=== PATIENT | male | born 1985 | race Caucasian/White ===

== ENCOUNTER 2016-06-25 10:50 | Emergency (ER) | payer OTHER ==
[~2016-06-25] VITALS: Ht 190.5 cm; Wt 139.1 kg
[~2016-06-25 10:50] MED LIST: BUPR8MIS SL
[2016-06-25 10:59] VITALS: TEMP 36.5; Ht 190.5 cm; Wt 139.1 kg
[2016-06-25 11:07] VITALS: O2SAT 97
--- NOTE | 2016-06-25 12:43 | EMERGENCY ROOM VISIT NOTE ---
History Report prepared by Sameera: Disha Mcmahon Under the Supervision of: Dr. Esteban Cummings M.D. First contact with patient: 12:10 Chief Complaint: FALL Stated Complaint: FALL, NECK PAIN History of Present Illness The patient is a 30 year old male who presents to the Emergency Room with complaints of an episode of a fall occurring 3 hours [employer]. 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 He landed on his left shoulder and hit his head. The patient reports LOC for about 1 minute. He is currently complaining of left shoulder pain, neck pain, headache , and blurred vision. Movement exacerbates his pain. He was feeling nauseous but received Zofran en route to the ED, which alleviated his nausea. The patient rates his current pain as a 7/10 in severity. He has not taken anything for pain. He is on Suboxone. The patient went to [facility]. He was placed in a cervical collar and was sent to the ED for further evaluation. He denies vomiting. 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 Review of Systems See HPI for pertinent positives & negatives. A total of 10 systems reviewed and were otherwise negative. Past Medical & Surgical Medical Problems: (1) ESOPHAGEAL REFLUX (2) FAM HX-CHR RESP COND NEC (3) FAMILY HISTORY OF OTHER CARDIOVASCULAR DISEASES (4) FAMILY HX-MALIGNANCY NOS (5) HYPERTENSION NOS (6) MIGRAINE UNSPECIFIED W/O INTRACT MGRN W/O STATUS MIGRAINOSUS (7) TOBACCO USE DISORDER Family History Cancer Heart disease Hypertension Lung disease Social History Smoking Status: Current Every Day Smoker Alcohol Use: none Drug Use: none Marital Status: in relationship Housing Status: unknown Occupation Status: employed Current/Historical Medications Scheduled Buprenorphine Hcl-Naloxone Hcl (Suboxone 8-2 Mg), 1 EA SL DAILY Allergies Coded Allergies: No Known Allergies (Verified , 06/25/16) Physical Exam Vital Signs Date Time Temp Pulse Resp B/P Pulse Ox O2 Delivery O2 Flow Rate FiO2 06/25/16 14:00 68 17 134/87 06/25/16 13:31 71 16 134/87 96 Room Air 06/25/16 13:00 73 18 120/77 98 Room Air 06/25/16 11:38 72 18 137/75 97 Room Air 06/25/16 11:07 97 Room Air 06/25/16 10:59 36.5 78 16 164/74 97 Room Air 06/25/16 10:59 80 Physical Exam GENERAL: Patient is a healthy-appearing well-nourished 30 year old male. HEAD: Normocephalic atraumatic EYES: Ocular movements intact pupils equal and react to light OROPHARYNX mucous membranes are moist no exudates present no erythema or edema present NECK: Cervical collar in place, no nuchal rigidity CHEST: Good equal expansion LUNGS: Clear and equal to auscultation CARDIAC: Normal S1 and S2 ABDOMEN: Soft nontender no guarding BACK: Tender to the midline of the spine at C4 asa well as T6 - T10. EXTREMITIES: No pain upon palpation normal muscle strength in all groups no clubbing cyanosis or edema. Good ROM of left shoulder, neurovascularly intact at the left hand. Good ROM of the left elbow and left wrist, free from pain. NEURO: Patient is following commands is answering questions appropriately. Alert and oriented x3 Cranial Nerves 2-12 grossly intact Medical Decision & Procedures ER Provider Diagnostic Interpretation: Radiology results as stated below per my review and radiologist interpretation: CT OF THE HEAD WITHOUT CONTRAST CLINICAL HISTORY: Fall with loss of consciousness. COMPARISON STUDY: Head CT January 08, 2012 CT DOSE: 3095.28 mGy.cm TECHNIQUE: Helical axial images of the head were obtained without IV contrast. Automated exposure control was utilized for the study. FINDINGS: No acute intracranial hemorrhage, midline shift or mass effect is present. Ventricular system is normal. The basilar cisterns are patent. There are no extra-axial collections. Mckenzie-white differentiation is maintained. There is no calvarial fracture. There is mild mucosal thickening of the sinuses. IMPRESSION: 1. No acute intracranial findings. 2. No calvarial fracture. Electronically signed by: Eliecer Richards M.D. 06/25/2016 1:40 PM Dictated Date/Time: 06/25/2016 1:[address] OF THE CERVICAL SPINE CLINICAL HISTORY: Neck pain status post trauma COMPARISON STUDY: No previous studies for comparison. CT DOSE: TECHNIQUE: CT scan of the cervical spine was performed from the skull base to the thoracic inlet. Images are reviewed in the axial, sagittal, and coronal planes. IV contrast was not administered for this examination. FINDINGS: The visualized portions of the lung apices reveal no evidence of pneumothorax. The prevertebral soft tissues are normal. No fractures or subluxations are visualized. There is slight straightening of normal cervical lordosis. There are degenerative changes most pronounced the C5-6 level. IMPRESSION: No evidence of acute fracture or traumatic subluxation. Electronically signed by: Maikol Escobedo M.D. 06/25/2016 1:41 PM Dictated Date/Time: 06/25/2016 1:[address] THORACIC SPINE WITHOUT CT DOSE: CLINICAL HISTORY: Thoracic spine pain status post trauma TECHNIQUE: Helical images were acquired in transverse plane. Reformatted images were acquired. COMPARISON STUDY: None. FINDINGS: No paraspinal hematomas are visualized. No pleural effusions are visualized. No pneumothorax is visualized. Multilevel endplate cavities are felt to be developmental. No acute fractures are visualized. There are no subluxations. IMPRESSION: No evidence of acute fracture or traumatic subluxation. Electronically signed by: Maikol Escobedo M.D. 06/25/2016 1:45 PM Dictated Date/Time: 06/25/2016 1:42 PM LEFT SHOULDER MIN 2 VIEWS ROUTINE CLINICAL HISTORY: Left shoulder pain following fall. COMPARISON: None FINDINGS: Alignment of the left shoulder is anatomic. There is no acute fracture. IMPRESSION: No acute fracture or dislocation of the left shoulder. Electronically signed by: Eliecer Richards M.D. 06/25/2016 2:34 PM Dictated Date/Time: 06/25/2016 2:[address] SCAN OF THE LUMBAR SPINE WITHOUT IV CONTRAST CLINICAL HISTORY: Fall with back pain. COMPARISON STUDY: CT scan of lumbar spine dated 01/08/2012. TECHNIQUE: CT scan of the lumbar spine is performed from the lower thoracic spine to the sacrum. Images are reviewed in the axial, sagittal, and coronal planes. IV contrast was not administered for this examination. FINDINGS: The skeletal structures are well mineralized. There is no evidence of fracture or malalignment. Vertebral body height and alignment are maintained throughout the lumbar spine. Minimal anterior wedging of T12 is unchanged dating back to 2011. The transverse and spinous processes are intact. No lytic or blastic bony lesions are seen. There is no spondylolysis. The intervertebral disc spaces are preserved. There is no evidence of large disc herniation. The central canal appears clear. The visualized sacrum and bony pelvis appear intact. The paraspinous soft tissues are within normal limits. IMPRESSION: Unremarkable assessment of the lumbar spine. Electronically signed by: Grey Estrella M.D. 06/25/2016 1:53 PM Dictated Date/Time: 06/25/2016 1:50 PM ED Course 1210: Past medical records reviewed. The patient was evaluated in room C11B. A complete history and physical examination was performed. 1337: I reassessed the patient and updated him at this time. 1458: I reassessed the patient at this time. He is feeling better and resting comfortably. I discussed the results and treatment plan with the patient. I answered all pertaining questions that he had. He expressed understanding and verbalized agreement. The patient will be discharged home. Medical Decision Differential diagnosis: Etiologies such as fracture, dislocation, intra-abdominal, pneumothorax, intrathoracic , intracranial, neurologic, as well as other traumatic pathologies were entertained. This is a 30-year-old male who presents emergency department complaining of a fall at his job. Patient is complaining of possibly losing consciousness as well as neck pain. He is placed in a cervical collar med express sent to the emergency department. CAT scan of his head does not show any acute process and a CAT scan of the spine does not show any acute process. After removal of the cervical collar the patient was continuing to complain of neck pain so he was placed in a [place] J collar. X-rays of his left shoulder do not show any evidence of chest fracture dislocation or subluxation. The patient was offered pain medication in the emergency department however he is on Suboxone and noted that he cannot take anything for pain. For this reason I stressed the need for follow-up with orthopedics. Impression Primary Impression: Shoulder pain, left Additional Impressions: Neck pain, acute Fall Scribe Attestation The scribe's documentation has been prepared under my direction and personally reviewed by me in its entirety. I confirm that the note above accurately reflects all work, treatment, procedures, and medical decision making performed by me. Departure Information Dispostion Home / Self-Care Referrals Ozzie Maldonado M.D.([facility]) (PCP) Forms HOME CARE DOCUMENTATION FORM, IMPORTANT VISIT INFORMATION, School Instructions, Work Instructions Patient Instructions ED Mechanical Fall, ED Shoulder Pain [facility], ED Sprain Strain Neck, Falls Risks Prevent, My [facility] Additional Instructions You have been examined and treated today on an emergency basis only. This is not a substitute for, or an effort to provide, complete comprehensive medical care. It is impossible to recognize and treat all injuries or illnesses in a single emergency department visit. It is therefore important that you follow up closely with Dr Maldonado. Call as soon as possible for an appointment. Thank you for your time and consideration. I look forward to speaking with you again soon. Please don't hesitate to call us if you have any questions. Problem Qualifiers Primary Impression: Shoulder pain, left Chronicity: acute Qualified Codes: M25.512 - Pain in left shoulder Additional Impressions: Fall Encounter type: initial encounter Qualified Codes: W19.XXXA - Unspecified fall, initial encounter
--- NOTE | 2016-06-25 13:42 | DIAGNOSTIC IMAGING REPORT ---
CT OF THE HEAD WITHOUT CONTRAST CLINICAL HISTORY: Fall with loss of consciousness. COMPARISON STUDY: Head CT January 08, 2012 CT DOSE: 3095.28 mGy.cm TECHNIQUE: Helical axial images of the head were obtained without IV contrast. Automated exposure control was utilized for the study. FINDINGS: No acute intracranial hemorrhage, midline shift or mass effect is present. Ventricular system is normal. The basilar cisterns are patent. There are no extra-axial collections. Mckenzie-white differentiation is maintained. There is no calvarial fracture. There is mild mucosal thickening of the sinuses. IMPRESSION: 1. No acute intracranial findings. 2. No calvarial fracture. Electronically signed by: Eliecer Richards M.D. 06/25/2016 1:40 PM Dictated Date/Time: 06/25/2016 1:37 PM
--- NOTE | 2016-06-25 13:43 | DIAGNOSTIC IMAGING REPORT ---
CT OF THE CERVICAL SPINE CLINICAL HISTORY: Neck pain status post trauma COMPARISON STUDY: No previous studies for comparison. CT DOSE: TECHNIQUE: CT scan of the cervical spine was performed from the skull base to the thoracic inlet. Images are reviewed in the axial, sagittal, and coronal planes. IV contrast was not administered for this examination. FINDINGS: The visualized portions of the lung apices reveal no evidence of pneumothorax. The prevertebral soft tissues are normal. No fractures or subluxations are visualized. There is slight straightening of normal cervical lordosis. There are degenerative changes most pronounced the C5-6 level. IMPRESSION: No evidence of acute fracture or traumatic subluxation. Electronically signed by: Maikol Escobedo M.D. 06/25/2016 1:41 PM Dictated Date/Time: 06/25/2016 1:39 PM
--- NOTE | 2016-06-25 13:47 | DIAGNOSTIC IMAGING REPORT ---
CT THORACIC SPINE WITHOUT CT DOSE: CLINICAL HISTORY: Thoracic spine pain status post trauma TECHNIQUE: Helical images were acquired in transverse plane. Reformatted images were acquired. COMPARISON STUDY: None. FINDINGS: No paraspinal hematomas are visualized. No pleural effusions are visualized. No pneumothorax is visualized. Multilevel endplate cavities are felt to be developmental. No acute fractures are visualized. There are no subluxations. IMPRESSION: No evidence of acute fracture or traumatic subluxation. Electronically signed by: Maikol Escobedo M.D. 06/25/2016 1:45 PM Dictated Date/Time: 06/25/2016 1:42 PM
--- NOTE | 2016-06-25 13:55 | DIAGNOSTIC IMAGING REPORT ---
CT SCAN OF THE LUMBAR SPINE WITHOUT IV CONTRAST CLINICAL HISTORY: Fall with back pain. COMPARISON STUDY: CT scan of lumbar spine dated 01/08/2012. TECHNIQUE: CT scan of the lumbar spine is performed from the lower thoracic spine to the sacrum. Images are reviewed in the axial, sagittal, and coronal planes. IV contrast was not administered for this examination. FINDINGS: The skeletal structures are well mineralized. There is no evidence of fracture or malalignment. Vertebral body height and alignment are maintained throughout the lumbar spine. Minimal anterior wedging of T12 is unchanged dating back to 2011. The transverse and spinous processes are intact. No lytic or blastic bony lesions are seen. There is no spondylolysis. The intervertebral disc spaces are preserved. There is no evidence of large disc herniation. The central canal appears clear. The visualized sacrum and bony pelvis appear intact. The paraspinous soft tissues are within normal limits. IMPRESSION: Unremarkable assessment of the lumbar spine. Electronically signed by: Grey Estrella M.D. 06/25/2016 1:53 PM Dictated Date/Time: 06/25/2016 1:50 PM
--- NOTE | 2016-06-25 14:36 | DIAGNOSTIC IMAGING REPORT ---
LEFT SHOULDER MIN 2 VIEWS ROUTINE CLINICAL HISTORY: Left shoulder pain following fall. COMPARISON: None FINDINGS: Alignment of the left shoulder is anatomic. There is no acute fracture. IMPRESSION: No acute fracture or dislocation of the left shoulder. Electronically signed by: Eliecer Richards M.D. 06/25/2016 2:34 PM Dictated Date/Time: 06/25/2016 2:32 PM
[2016-06-25 15:25] VITALS: BP 139/99; PULSE 70; O2SAT 98
== END 2016-06-25 15:26 | disposition home or self-care (01) ==
LOC: EDBD 10:50 → C.EDC 10:51
DX: M25.512 Pain in left shoulder (principal); M54.2 Cervicalgia; W00.0XXA Fall on same level due to ice and snow, initial encounter; Y99.0 Civilian activity done for income or pay; F17.200 Nicotine dependence, unspecified, uncomplicated; I10 Essential (primary) hypertension

== ENCOUNTER 2020-08-31 06:44 | Inpatient (IN) ==
[2020-08-31] MEDS ORDERED: ONDANSETRON INJ 2 MG/ML 2 ML VIAL IV STA (07:05)
[2020-08-31] MEDS ORDERED: SODIUM CHLORIDE 0.9% 1000ML 500 ML IV ONE (07:05)
[2020-08-31] MEDS ORDERED: AMPICILLIN/SULBACTAM SOD 3,000 MG in 0.9 % SODIUM CHLORIDE 100 ML IV STA (07:05)
[2020-08-31] MEDS ORDERED: dexAMETHasone**PF** 10 MG/ML VIAL IV ONE (07:13)
--- NOTE | 2020-08-31 07:16 | Emergency Department Note ---
ED Visit Note I contributed to the care of this patient under the supervision of Dr. Dan. . Resident Activity Tracking Resident Involvement: Resident Care Provided Care Provided: Adult ED
--- NOTE | 2020-08-31 07:39 | Emergency Department Note ---
History of Present Illness General Chief complaint: Sore Throat Stated complaint: SEVERE SORE THROAT Time Seen by Provider: 08/31/20 06:51 Source: patient Mode of arrival: ambulatory Limitations: no limitations History of Present Illness Provider complaint: Sore throat Maximum Pain Intensity: 7 This is a 35-year-old male who presents to the ED with a chief complaint of a sore throat that has been ongoing for about a week. He states that over the past 2 to 3 days he began having some difficulty with swallowing, increased discomfort and a little difficulty breathing. He denies any fevers or chills. No nausea or vomiting. No additional complaints. Home Medications Medication Instructions Recorded Confirmed Type buprenorphine HCl 8 mg SUBLINGUAL TID 08/31/20 08/31/20 History Allergies Allergy/AdvReac Type Severity Reaction Status Date / Time No Known Allergies Allergy Verified 08/31/20 07:03 Past Med/Surg History Medical History (Updated 08/31/20 @ 10:10 by Esteban Dan DO) Anxiety Depression GERD (gastroesophageal reflux disease) NO MEDS CURRENTLY Opioid dependence Surgical History History of open reduction and internal fixation (ORIF) procedure LEFT ARM AND RIGHT HAND History of tooth extraction Family History Other No pertinent family history Social History Smoking Status: Current every day smoker Tobacco Type: Cigarettes Cigarettes Per Day: 20 CIGARETTES DAILY X 12 YEARS; Second Hand Exposure: Yes; Hx Alcohol Use: No Hx Substance Use: Yes (H/O OPIOD ADDICTION) Last Used Substance Other:: 06/04/18 Preferred Language: Zimbabwean Communication Ability: Effective Head Waitress Required: No Beliefs That Will Affect Care: None Current Living Situation: Family Feels Safe at Home: Yes Review of Systems A total of 10 systems reviewed and were otherwise negative Physical Exam Vital Signs Vital Signs - 24 hr 08/31/20 06:48 08/31/20 07:39 08/31/20 09:39 Temperature 36.3 C L Temperature Source Temporal Artery Scan Pulse Rate 97 H Pulse Rhythm Regular Respiratory Rate 16 18 16 Respiratory Effort / Characteristics Non-Labored Non-Labored Respiratory Depth Normal Normal Blood Pressure 171/102 H Blood Pressure [Left Arm] 152/98 H 131/91 Blood Pressure Mean 125 Blood Pressure Mean [Left Arm] 116 104 Blood Pressure Position [Left Arm] Sitting Sitting Pulse Oximetry 96 94 95 Oxygen Delivery Method Room Air Room Air Room Air Sepsis Recent Fever Within 48 Hours No Sepsis New/Unexplained Change in Mental Status No Sepsis Action Taken by Nursing No Action Required CONSTITUTIONAL/VITAL SIGNS: Reviewed / noted above. GENERAL: Non-toxic in appearance. INTEGUMENTARY: Warm, dry, and [place]. HEAD: Normocephalic. EYES: without scleral icterus or trauma. ENT/OROPHARYNX: clear and moist. The patient has moderate right soft palate and peritonsillar edema and fullness that slightly narrows the airway and deviates slightly to the left. Muffled voice. Minimal trismus. LYMPHADENOPATHY/NECK: Is supple without lymphadenopathy or meningismus. RESPIRATORY: Lungs clear and equal. CARDIOVASCULAR: Regular rate and rhythm. GI/ABDOMEN: Soft and nontender. No organomegaly or pulsatile mass. No rebound or guarding. Normal bowel sounds. EXTREMITIES: Warm and well perfused. BACK: No CVA tenderness. NEUROLOGICAL: Intact without focal deficits. PSYCHIATRIC: normal affect. MUSCULOSKELETAL: Normally developed with good muscle tone. TRIAGE NURSING DOCUMENTATION REVIEWED. Course Administered Medications Discontinued Medications Dexamethasone Sodium Phosphate (DexamethasonePf 10 Mg/Ml Vial) 10 mg IV NOW ONE Stop: 08/31/20 07:14 Last Admin: 08/31/20 07:59 Dose: 10 mg Documented by: [id number] Ampicillin Sodium/Sulbactam Sodium 3,000 mg/ Sodium Chloride 108 mls @ 200 mls/hr IV NOW STA; Protocol Stop: 08/31/20 07:37 Last Infusion: 08/31/20 08:48 Dose: 0 mls/hr Documented by: [id number] Admin: 08/31/20 07:59 Dose: 200 mls/hr Documented by: [id number] Sodium Chloride (Nss 1000ml) 500 mls @ 999 mls/hr IV .Q31M ONE Stop: 08/31/20 07:35 Last Infusion: 08/31/20 08:25 Dose: 0 mls/hr Documented by: [id number] Admin: 08/31/20 07:53 Dose: 999 mls/hr Documented by: [id number] Ioversol (Optiray 320 125ml) 120 ml IV ONCE ONE Stop: 08/31/20 08:41 Last Admin: 08/31/20 08:40 Dose: 120 ml Documented by: [id number] Ondansetron HCl (Ondansetron Inj 2 Mg/Ml 2 Ml Vial) 4 mg IV NOW STA Stop: 08/31/20 07:06 Last Admin: 08/31/20 07:59 Dose: 4 mg Documented by: [id number] Medical Decision Making Differential Diagnosis Differential includes peritonsillar abscess, retropharyngeal abscess, laryngitis, bacterial versus viral infection, tonsillitis, airway obstruction. Medical Records Attestation: I reviewed the patient's medical records. Home Medications Current Medication List: was personally reviewed by me Laboratory Data Attestation: I reviewed the patient's lab results. Result diagrams: 08/31/20 07:26 08/31/20 07:26 Lab Results 08/31/20 08/31/20 08/31/20 Range/Units 07:26 07:26 09:43 WBC 17.70 H (4.8-10.8) K/uL RBC 5.05 (4.7-6.1) M/uL Hgb 15.2 (14.0-18.0) g/dL Hct 44.6 (42-52) % MCV 88.3 (80-100) fL MCH 30.1 (25-34) pg MCHC 34.1 (32-36) g/dL RDW Std Deviation 41.6 (36.4-46.3) fL RDW Coeff of Les 13.0 (11.5-14.5) % Plt Count 305 (130-400) K/uL MPV 11.2 H (7.4-10.4) fL Immature Gran % (Auto) 0.3 % Neut % (Auto) 66.3 % Lymph % (Auto) 18.4 % Todd % (Auto) 13.7 % Eos % (Auto) 1.0 % Baso % (Auto) 0.3 % Neut # (Auto) 11.72 H (1.4-6.5) K/uL Lymph # (Auto) 3.26 (1.2-3.4) K/uL Todd # (Auto) 2.43 H (0.11-0.59) K/uL Eos # (Auto) 0.18 (0-0.5) K/uL Baso # (Auto) 0.05 (0-0.2) K/uL Immature Gran # (Auto) 0.06 H (0.00-0.02) K/uL Sodium 138 (136-145) mmol/L Potassium 3.7 (3.5-5.1) mmol/L Chloride 107 (98-107) mmol/L Carbon Dioxide 26 (21-32) mmol/L Anion Gap 5.0 (3-11) BUN 13 (7-18) mg/dl Creatinine 0.89 (0.6-1.4) mg/dl Est Cr Clr Drug Dosing 173.0 ml/min Est GFR ( Amer) 129.3 Est GFR (Non-Af Amer) 111.6 BUN/Creatinine Ratio 14.6 (10-20) Glucose 102 H (70-99) mg/dl Calcium 8.9 (8.5-10.1) mg/dl Total Bilirubin 0.8 (0.2-1) mg/dl AST 16 (15-37) U/L ALT 33 (12-78) U/L Alkaline Phosphatase 81 (45-117) U/L Total Protein 8.1 (6.4-8.2) gm/dl Albumin 3.8 (3.4-5.0) gm/dl Globulin 4.3 H (2.5-4.0) gm/dl Albumin/Globulin Ratio 0.9 (0.9-2) COVID-19 Eval Order CovFluRsv at [facility] Imaging Data Radiologist's Impression: CT scan of the soft tissue of the neck IMPRESSION: 1. A 3.1 x 2.8 cm right peritonsillar abscess. 2. There is hypertrophy of adenoid tonsils and palatine tonsils with left deviation of the airway at the posterior oropharynx resulting in severe narr owing of the airway at the posterior oropharynx. Direct visualization recommended to evaluate for severe airway compromise. 3. Right cervical lymphadenopathy. This is likely reactive. MDM Narrative Patient presents with 2 days worth of worsening sore throat. He presents with muffled voice and mild trismus and an appearance of a right-sided peritonsillar edema/abscess. Blood pressure was elevated. He is afebrile. Breathing appears comfortable. White blood cell count was elevated at 17,000. Metabolic panel was unremarkable. CT scan showed a 3.1 x 2.8 cm right peritonsillar abscess. The patient was treated with IV Unasyn as well as IV Decadron and IV Zofran and IV fluids. He will be seen by the hospitalist for inpatient evaluation and care. We did speak with Dr. Pizarro's office from ENT. They will see the patient in consult. Impression & Plan Abscess, peritonsillar Discharge Plan Visit Data Chief Complaint: Sore Throat Stated Complaint: SEVERE SORE THROAT ED Provider: Esteban Dan ED Midlevel Provider: Oscar Buckner Discharge Problem: Abscess, peritonsillar Patient Disposition: Being Evaluated by Hospitalist Forms Stand Alone Forms: [employer] [facility] [employer] Prescriptions Prescriptions: No Action buprenorphine HCl 8 mg tablet, sublingual 8 mg SUBLINGUAL TID RF: 0 Referrals Referrals: PCP,NO [Primary Care Provider] -
[2020-08-31 07:46] LABS: Basophils # (auto) 0.05 K/uL (0-0.2); Basophils % (auto) 0.3 %; Eosinophils # (auto) 0.18 K/uL (0-0.5); Hematocrit (blood only) 44.6 % (42-52); Hemoglobin 15.2 g/dL (14.0-18.0); Immature Granulocytes # (auto) 0.06 K/uL (0.00-0.02); Immature Granulocytes % (auto) 0.3 %; Lymphocytes # (auto) 3.26 K/uL (1.2-3.4); Lymphocytes % (auto) 18.4 %; Mean Corpuscular Hemoglobin 30.1 pg (25-34); Mean Corpuscular Hgb Conc 34.1 g/dL (32-36); Mean Corpuscular Volume 88.3 fL (80-100); Mean Platelet Volume 11.2 fL (7.4-10.4); Monocytes # (auto) 2.43 K/uL (0.11-0.59); Monocytes % (auto) 13.7 %; Neutrophils # (auto) 11.72 K/uL (1.4-6.5); Neutrophils % (auto) 66.3 %; Platelet Count 305 K/uL (130-400); RDW Standard Deviation 41.6 fL (36.4-46.3); Red Blood Count 5.05 M/uL (4.7-6.1)
[2020-08-31 08:11] LABS: Albumin Level 3.8 gm/dl (3.4-5.0); BUN Creatinine Ratio 14.6 (10-20); Calcium 8.9 mg/dl (8.5-10.1); Est GFR (African American) 129.3; Est GFR (Non-African American) 111.6; Potassium 3.7 mmol/L (3.5-5.1)
[2020-08-31 08:14] LABS: Albumin Globulin Ratio 0.9 (0.9-2); Bilirubin,Total 0.8 mg/dl (0.2-1); Globulin 4.3 gm/dl (2.5-4.0); Total Protein 8.1 gm/dl (6.4-8.2)
[2020-08-31] MEDS ORDERED: OPTIRAY 320 125ml IV ONE (08:40)
--- NOTE | 2020-08-31 09:05 | CT Scan Report ---
CT soft tissue neck w con HISTORY: Sore throat. ? parapharyngeal vs tonsillar abscess TECHNIQUE: Multiaxial CT images of the neck were performed following the intravenous administration o f 120 cc of Optiray 320. COMPARISON STUDY: Cervical spine CT 06/25/2016. Neck CT 03/15/2016. FINDINGS: The visualized brain parenchyma and orbits are unremarkable. The pterygopalatine fossa are well-maintained. Mild hypertrophy of the adenoid tonsils. There is also enlargement of the bilateral palatine tonsils with severe narrowing of the posterior oropharynx the palatine tonsils abut and disp lace the lung base anteriorly. There is a 3.1 x 2.8 cm peripherally enhancing low-density right perit onsillar collection consistent with an abscess. This results in left deviation of the airway at this level. Mild mucosal thickening within the ethmoid air cells and maxillary sinuses. The epiglottis and prevertebral soft tissues are normal in thickness. There is asymmetric thickening of the right pirif orm sinus which is likely reactive to the peritonsillar abscess. The thyroid gland enhances normally. No pneumothorax. No fractures within the visualized osseous structures. The parotid and submandibula r glands are symmetric. Right cervical lymphadenopathy is likely reactive to the abscess. IMPRESSION: 1. A 3.1 x 2.8 cm right peritonsillar abscess. 2. There is hypertrophy of adenoid tonsils and palatine tonsils with left deviation of the airway at the posterior oropharynx resulting in severe narrowing of the airway at the posterior oropharynx. Dir ect visualization recommended to evaluate for severe airway compromise. 3. Right cervical lymphadenopathy. This is likely reactive. ACT 112: Negative or not required by law. Electronically signed by: Micheal Cedillo M.D. 08/31/2020 9:04 AM
--- NOTE | 2020-08-31 10:02 | History & Physical Report ---
Date of Service August 31, 2020 Assessment & Plan (1) Peritonsillar abscess: Patient was given dexamethasone 10 mg in the emergency department is placed on Unasyn therapy with surgical consultation with Dr. Sanchez. Will be kept n.p.o. for possible surgical intervention Ct neck soft tissue 08/31/20 IMPRESSION: 1. A 3.1 x 2.8 cm right peritonsillar abscess. 2. There is hypertrophy of adenoid tonsils and palatine tonsils with left deviation of the airway at the posterior oropharynx resulting in severe narrowing of the airway at the posterior oropharynx. Direct visualization recommended to evaluate for severe airway compromise. 3. Right cervical lymphadenopathy. This is likely reactive. (2) Opiate withdrawal: Patient remains on Suboxone this will be continued with during his inpatient stay, he has not been taking it for the last day or so (3) DVT prophylaxis: SCDs for DVT prevention History of Present Illness Primary Care Provider: NO PCP 35-year-old male who presents to the ED with a chief complaint of a sore throat that has been ongoing for about a week. He states that over the past 2 to 3 days he began having some difficulty with swallowing, increased discomfort and a little difficulty breathing. He denies any fevers or chills. No nausea or vomiting. No additional complaints. Discussion with ENT recommends steroids and antibiotics and possible surgical intervention. Allergies Allergy/AdvReac Type Severity Reaction Status Date / Time No Known Allergies Allergy Verified 08/31/20 07:03 Home Medications Medication Instructions Recorded Confirmed Type buprenorphine HCl 8 mg SUBLINGUAL TID 08/31/20 08/31/20 History Past Med/Surg History Medical History (Updated 08/31/20 @ 10:10 by Esteban Dan DO) Anxiety Depression GERD (gastroesophageal reflux disease) NO MEDS CURRENTLY Opioid dependence Surgical History History of open reduction and internal fixation (ORIF) procedure LEFT ARM AND RIGHT HAND History of tooth extraction Family History Other No pertinent family history Social History Smoking Status: Current every day smoker Tobacco Type: Cigarettes Cigarettes Per Day: 20 CIGARETTES DAILY X 12 YEARS; Second Hand Exposure: Yes; Hx Alcohol Use: No Hx Substance Use: Yes (H/O OPIOD ADDICTION) Last Used Substance Other:: 06/04/18 Preferred Language: Greenlandic Communication Ability: Effective Pipe Cutter Required: No Beliefs That Will Affect Care: None Current Living Situation: Family Feels Safe at Home: Yes Review of Systems Review of Systems: Mild distress and fatigue no headache, blurry or double vision no speech or swallowing issues no chest pain, pressure or palpitations no shortness of breath, cough or wheezes no abdominal pain, nausea or vomiting, diarrhea or constipation no dysuria, hematuria or frequency no focal joint pain or swelling no back pain, CVA tenderness or radicular pain no bruising, bleeding or rashes no focal signs of weakness or numbness or altered sensation no complaints of anxiety or depression.. Physical Exam Physical Exam: The patient appeared well nourished and normally developed. Vital signs as documented. Head exam is normocephalic atraumatic no scleral icterus Neck is without JVD, thyromegaly, or carotid bruits. Lungs are clear to auscultation, no focal loss of breath sounds Cardiac exam, Rhythm is regular.. No murmurs, rubs or gallops. Abdominal exam reveals normal bowel sounds, soft non tender, no masses Extremities are nonedematous and both pedal pulses are present Neurologic exam is alert and oriented, no focal loss of strength or sensation Skin is without bruises or rashes Psychologically is without concerns for anxiety or depression Results & Data Results & Data ([facility]) Vital Signs (Past 12 Hours) Vital Signs Temp Pulse Resp BP BP Pulse Ox 08/31/20 09:39 16 131/91 95 08/31/20 07:39 18 152/98 H 94 08/31/20 06:48 97.3 F L 97 H 16 171/102 H 96 PG Care Time/CCT Total # of Minutes Spent Total Time Spent with Patient: Total time spent is greater than 50% in coordination of care (as documented) at patient's floor/unit and/or counseling patient: Coding Level of Care Code 52524 Initial Inpt Care Lvl 2 Diagnoses Peritonsillar abscess J36 Opiate withdrawal F11.23 DVT prophylaxis Z29.9
--- NOTE | 2020-08-31 10:10 | XRay Report ---
XR chest 1V portable CLINICAL HISTORY: Resp sx c/w COVID-19 COMPARISON STUDY: Chest radiograph February 11, 2019. FINDINGS: Lung volumes are normal. Lungs are clear. There is no pneumothorax or pleural effusion. Car diac size is normal. Mediastinal contours are normal. There is no evidence for pulmonary edema. IMPRESSION: No acute cardiopulmonary findings. ACT 112: Negative or not required by law. Electronically signed by: Eliecer Richards M.D. 08/31/2020 10:09 AM
[2020-08-31 10:45] LABS: Influenza A virus by PCR Negative (Neg); Influenza B virus by PCR Negative (Neg); RSV by PCR Negative (Neg); SARS CoV2 RNA(COVID-19) InHosp NEGATIVE (Negative)
[2020-08-31] MEDS ORDERED: LIDO/EPINEPHRINE/SOD BICARB 20 ML VIAL ONE (11:50)
--- NOTE | 2020-08-31 12:13 | ENT Consultation ---
Date of Consultation August 31, 2020 Assessment & Plan (1) Abscess, peritonsillar: Drainage of right [employer]CH[employer]IC as above patient states already feels much better recommend unasyn or clindamycin recommend decadron if feeling even better in the am, ok for discharge from ENT standpoint. would discharge on either clindamycin, augmentin and prednisone taper will have him follow up in my office in a week Present on Admission?: Yes History of Present Illness History of Present Illness 35 yo male with a one week history of sore throat. States that the sore throat worsened on Saturday and into Saturday. He came to the ED this am as he was starting to have trouble swallowing. Denies history of recurrent tonsillitis. Does have a history of a benign lesion of his uvula. Had it removed several years ago. Also has some right sided otalgia. No other signs or symptoms. Denies any current difficulty breathing. had a CT scan of the neck in the ED which showed a 3cm right sided [employer] Allergies Allergy/AdvReac Type Severity Reaction Status Date / Time No Known Allergies Allergy Verified 08/31/20 07:03 Home Medications Medication Instructions Recorded Confirmed Type buprenorphine HCl 8 mg SUBLINGUAL TID 08/31/20 08/31/20 History Patient History Medical History (Updated 08/31/20 @ 10:10 by Esteban Dan DO) Anxiety Depression GERD (gastroesophageal reflux disease) NO MEDS CURRENTLY Opioid dependence Surgical History History of open reduction and internal fixation (ORIF) procedure LEFT ARM AND RIGHT HAND History of tooth extraction Family History Other No pertinent family history Social History Smoking Status: Current every day smoker Tobacco Type: Cigarettes Cigarettes Per Day: 20 CIGARETTES DAILY X 12 YEARS; Second Hand Exposure: Yes; Hx Alcohol Use: No Hx Substance Use: Yes (H/O OPIOD ADDICTION) Last Used Substance Other:: 06/04/18 Preferred Language: [place] Communication Ability: Effective Wheel Aligner Required: No Beliefs That Will Affect Care: None Current Living Situation: Family Feels Safe at Home: Yes Review of Systems Review of Systems: All systems reviewed & are unremarkable except as noted in HPI & below Physical Exam Physical Exam: PROCEDURE After obtaining informed consent, attention was directed to the oropharynx. 1% lidocaine with 1:100,000 epinephrine was used to inject the right peritonsillar region. Then using an 18 gauge needle on a 10cc syringe 10mL of purulence was aspirated from the right peritonsillar abscess. Patient tolerated well. Constitutional: WD/WN, vitals as above Eyes: PERRL, conjunctivae normal, anicteric sclerae ENMT: Right sided palatal edema. Bilateral tonsillar edema. Neck: trachea midline, no thyromegaly Respiratory: normal respiratory effort Cardiovascular: Rate/Rhythm: regular rate Vessels: no JVD Neurologic: CN's II-XI intact bilaterally Lymphatic: + lymphadenopathy Results & Data ([facility]) Vital Signs (Past 12 Hours) Vital Signs Temp Pulse Pulse Resp BP BP Pulse Ox 08/31/20 10:54 92 H 16 135/85 96 08/31/20 09:39 16 131/91 95 08/31/20 07:39 18 152/98 H 94 08/31/20 06:48 36.3 C L 97 H 16 171/102 H 96
[2020-08-31] MEDS ORDERED: MoRPHine SULFATE 2 MG/ML CARP IV PRN (12:30)
[2020-08-31] MEDS ORDERED: MoRPHine SULFATE 4 MG/ML 1 ML CARP\\VIAL IV PRN (12:30)
[2020-08-31] MEDS: buprenorphine HCL 8 MG SUBL SL SCH ×2 (13:06→20:15)
[2020-08-31] MEDS: AMPICILLIN/SULBACTAM SOD 3,000 MG in 0.9 % SODIUM CHLORIDE 100 ML IV SCH ×2 (13:58→20:14)
[2020-08-31] MEDS: NICOTINE 14 MG/24 HR PATCH TD SCH (13:59)
[2020-09-01] MEDS: AMPICILLIN/SULBACTAM SOD 3,000 MG in 0.9 % SODIUM CHLORIDE 100 ML IV SCH ×2 (02:07→07:59)
[2020-09-01] MEDS: NICOTINE 14 MG/24 HR PATCH TD SCH (07:59)
[2020-09-01] MEDS: buprenorphine HCL 8 MG SUBL SL SCH (08:00)
[2020-09-01 08:16] LABS: Hematocrit (blood only) 43.9 % (42-52); Hemoglobin 15.2 g/dL (14.0-18.0); Mean Corpuscular Hemoglobin 30.2 pg (25-34); Mean Corpuscular Hgb Conc 34.6 g/dL (32-36); Mean Corpuscular Volume 87.1 fL (80-100); Mean Platelet Volume 11.3 fL (7.4-10.4); Platelet Count 352 K/uL (130-400); RDW Coefficient of Variation 12.9 % (11.5-14.5); RDW Standard Deviation 41.4 fL (36.4-46.3); Red Blood Count 5.04 M/uL (4.7-6.1)
[2020-09-01 08:57] LABS: BUN Creatinine Ratio 13.6 (10-20); Calcium 9.3 mg/dl (8.5-10.1); Creatinine Clr Calc Pharmacy 163.1 ml/min; Est GFR (African American) 122.1; Est GFR (Non-African American) 105.4; Potassium 4.5 mmol/L (3.5-5.1)
[2020-09-01] MEDS ORDERED: dexAMETHasone 6 MG in SYRINGE 0 ML IV SCH (10:15)
--- NOTE | 2020-09-01 10:25 | Discharge Summary ---
Date of Service September 01, 2020 Admission HPI Per Admitting Provider 35-year-old male who presents to the ED with a chief complaint of a sore throat that has been ongoing for about a week. He states that over the past 2 to 3 days he began having some difficulty with swallowing, increased discomfort and a little difficulty breathing. He denies any fevers or chills. No nausea or vomiting. No additional complaints. Discussion with ENT recommends steroids and antibiotics and possible surgical intervention. Principal Diagnosis peritonsillar abscess Discharge Exam Constitutional well developed and well nourished; no acute distress Eyes PERRL, conjunctivae normal, anicteric sclerae ENMT Mouth: oral mucous membranes not dry Respiratory normal respiratory effort; no respiratory distress and no labored breathing Auscultation: lungs clear to auscultation bilaterally; no crackles, no rales, no rhonchi and no wheezes Cardiovascular Rate/Rhythm: regular rate and regular rhythm Heart Sounds: no murmur and no cardiac rub Vessels: normal peripheral pulses and radial pulses present; no JVD Extremities: no edema Gastrointestinal (Abdomen) Inspection/Auscultation: abdomen normal to inspection and normal bowel sounds; abdomen not distended Percussion/Palpation: abdomen soft; abdomen nontender, no guarding, abdomen not rigid and no hepatosplenomegaly Musculoskeletal Head/Neck/Chest: normocephalic and head atraumatic Spine: no cervical spinal tenderness, no cervical muscular tenderness, no thoracic spinal tenderness and no lumbar spinal tenderness Skin no rashes, warm and dry Neurologic CN's II-XI intact bilaterally and moves all extremities Motor/Sensory: no tremor and no sensory deficit Psychiatric Orientation: alert, oriented to person, oriented to place and oriented to time Apperance: appropriately groomed; not disheveled Affect: euthymic affect; no anxious affect and no tearful affect Discharge Data Allergies Allergy/AdvReac Type Severity Reaction Status Date / Time No Known Allergies Allergy Verified 08/31/20 07:03 Consultations 08/31/20 09:28 Consult Otolaryngology (Head and Neck) Routine 08/31/20 09:47 ED Decision to Admit Stat 08/31/20 12:30 Consult Otolaryngology (Head and Neck) Routine Ordered Studies 08/31/20 07:03 CT soft tissue neck w con Stat Hospital Course (1) Peritonsillar abscess: Patient was given dexamethasone 10 mg in the emergency department is placed on Unasyn therapy with surgical consultation with Dr. Sanchez. Will be kept n.p.o. for possible surgical intervention Ct neck soft tissue 08/31/20 IMPRESSION: 1. A 3.1 x 2.8 cm right peritonsillar abscess. 2. There is hypertrophy of adenoid tonsils and palatine tonsils with left deviation of the airway at the posterior oropharynx resulting in severe narrowing of the airway at the posterior oropharynx. Direct visualization recomm ended to evaluate for severe airway compromise. 3. Right cervical lymphadenopathy. This is likely reactive. 3-25 underwent drainage of abscess overnight today feeling much better will give prednisone 40mg x 5 days augmentin BID for 10 days see ENT in clinic in one week (2) Opiate withdrawal: Patient remains on Suboxone this will be continued with during his inpatient stay, he has not been taking it for the last day or so (3) DVT prophylaxis: SCDs for DVT prevention Total Time Total Time Spent Total Time Spent (In Minutes): 35 Total Time Includes: Examination of the Patient, Discharge Planning, Medication Reconciliation and Communication With Other Providers Discharge Plan Discharge Items Patient Disposition: Home - Self-Care Reason For Visit: PERITONSILAR ABSCESS,AIRWAY IMPINGEMENT Discharge Diagnosis: peritonsillar abscess Activity: Resume your previous activity Non-emergency contact: Primary Care Provider Call non-emergency contact if: you have any medication questions Follow-up/Referrals: Ga Pizarro DO [Physician] - (within one week) PCP,NO [Primary Care Provider] - Diet: Regular Diet Texture: Easy to Chew Addtl Attending Provider Instructions: You were treated for peritonsillar abscess You need 10 days of antibiotics -- continue to take augmentin until all pills are gone You will need 5 days of prednisone to help with swelling See Dr. Pizarro or one of his associates in one week in clinic Come back to ER for any shortness of breath, difficulty managing your saliva, trouble swallowing, or stridor Pending Studies at Discharge: No Stand-Alone Forms: My [employer], Smoking Cessation Medications and DC Order Prescriptions: New amoxicillin-pot clavulanate [Augmentin] 875-125 mg tablet 1 tab PO BID 10 Days Qty: 20 RF: 0 prednisone 20 mg tablet 40 mg PO DAILY 5 Days Qty: 10 RF: 0 Continued buprenorphine HCl 8 mg tablet, sublingual 8 mg SUBLINGUAL TID RF: 0 Discharge Orders: Discharge Order (Routine); Ordered 09/01/20 Ordered By: Lola Gallardo Admission Data Admit Date/Time: 08/31/20 10:07 Attending Provider: Lola Gallardo Admit Provider: Sarabjit Deng Primary Care Provider: PCP,NO Other Providers: Ga Pizarro ; Sarabjit Deng Coding Level of Care Code 48191 OBS Care - Discharge Diagnoses Peritonsillar abscess J36 Opiate withdrawal F11.23 DVT prophylaxis Z29.9
== END 2020-09-01 11:17 | disposition home or self-care (01) | DRG 153 ==
LOC: ED 06:44 → 3N 10:07 → SUATTDRO 10:07 → 3N 12:35